=== PATIENT | female | born 1975 | race Caucasian/White ===

== ENCOUNTER 2016-09-18 16:04 | Outpatient (CLI) | payer BC | END 2016-09-18 16:05 | disposition home or self-care (01) | DX: M77.31 Calcaneal spur, right foot (principal) ==

== ENCOUNTER 2021-12-04 19:38 | Outpatient (CLI) | payer BC | END 2021-12-04 19:39 | disposition critical access hospital (66) | LOC: EMS 19:38 | DX: R07.89 Other chest pain (principal); R42 Dizziness and giddiness; R19.7 Diarrhea, unspecified | CPT/HCPCS: A0425; A0427 ==

== ENCOUNTER 2021-12-04 19:55 | Emergency (ER) | payer BC ==
--- NOTE | 2021-12-04 20:16 | ED Physician Documentation ---
PD HPI CHEST PAIN - Stated complaint Stated Complaint: CP - Chief complaint Chief Complaint: Cardiac - History obtained from History obtained from: Patient - Additional information Additional information: 46-year-old woman with no history of cardiac disease presents for the evaluation of chest pain. She woke this morning just feeling kind of crummy. She is had some loose stools. Then around midday developed mild mid back pain. Then this evening maybe 2 hours ago developed some diffuse chest pressure. This was after using a THC vape pen, that said uses that not infrequently and is not out of the ordinary. She does not use tobacco although did in her early 20s. Her father started having coronary disease in his early 50s. None of the pain is severe. She is not short of breath. Review of Systems Ten Systems: 10 systems reviewed and negative Constitutional: reports: Fatigue. denies: Fever, Chills Cardiac: reports: Chest pain / pressure. denies: Palpitations, Pedal edema, Calf pain Respiratory: denies: Dyspnea, Cough PD PAST MEDICAL HISTORY - Past Medical History Past Medical History: Yes GI: GERD Psych: Depression, Anxiety - Past Surgical History Past Surgical History: Yes General: Gastric surgery, Other Ortho: ACL reconstruction - Present Medications Home Medications: Ambulatory Orders Medication Instructions Recorded Confirmed Escitalopram [Lexapro] 10 mg PO DAILY 12/04/21 12/04/21 Meloxicam [Mobic] 7.5 mg PO DAILY 12/04/21 12/04/21 Omeprazole 40 mg PO DAILY 12/04/21 12/04/21 - Allergies Allergies/Adverse Reactions: Allergies Allergy/AdvReac Type Severity Reaction Status Date / Time No Known Drug Allergies Allergy Verified 12/04/21 20:00 - Social History Does the pt smoke?: No Smoking Status: Never smoker Does the pt drink ETOH?: Yes ETOH Use: Liquor Does the pt have substance abuse?: No - Immunizations Immunizations are current?: Yes PD ED PE NORMAL - Vitals Vital signs reviewed: Yes - General General: Alert and oriented X 3, No acute distress - HEENT HEENT: PERRL, EOMI - Neck Neck: Supple, no meningeal sign, No bony TTP - Cardiac Cardiac: RRR, No murmur - Respiratory Respiratory: No respiratory distress, Clear bilaterally - Abdomen Abdomen: Non tender - Back Back: No CVA TTP, No spinal TTP - Derm Derm: Normal color, Warm and dry - Extremities Extremities: No edema, No calf tenderness / cord - Neuro Neuro: Alert and oriented X 3, Normal speech Results - Vitals Vitals: Vital Signs - 24 hr 12/04/21 12/04/21 20:00 21:39 Temperature 36.3 C L 36.4 C L Heart Rate 80 79 Respiratory 16 16 Rate Blood Pressure 130/80 135/81 H O2 Saturation 99 99 Oxygen O2 Source Room air - EKG (time done) 2008 Rate: Rate (enter#) (65) Rhythm: NSR [place]: Normal Intervals: Normal VA QRS: Normal Ischemia: Normal ST segments - Labs Labs: Laboratory Tests 12/04/21 12/04/21 12/04/21 20:41 20:41 20:41 WBC 5.9 RBC 4.47 Hgb 13.0 Hct 39.4 MCV 88.1 MCH 29.1 MCHC 33.0 RDW 14.6 Plt Count 246 MPV 9.4 Neut # (Auto) 3.1 Lymph # (Auto) 2.0 Coal # (Auto) 0.5 Eos # (Auto) 0.2 Baso # (Auto) 0.0 Absolute Nucleated RBC 0.00 Nucleated RBC % 0.0 Sodium 138 Potassium 3.3 L Chloride 105 Carbon Dioxide 24 Anion Gap 9.0 BUN 15 Creatinine 0.7 Estimated GFR (MDRD) 90 Glucose 99 Calcium 8.7 Total Bilirubin 0.4 AST 21 ALT 22 Alkaline Phosphatase 57 Troponin I High Sens < 2.3 L Total Protein 6.8 Albumin 3.7 Globulin 3.1 Albumin/Globulin Ratio 1.2 Lipase 38 - Rads (name of study) 1v cxr Radiology: EMP read contemporaneously (NAD) PD MEDICAL DECISION MAKING - ED course ED course: HEART 2 Perc Neg Departure - Departure Disposition: 01 Home, Self Care Clinical Impression: Atypical chest pain Condition: Good Record reviewed to determine appropriate education?: Yes Instructions: ED Chest Pain Atypical Unkn Cause Comments: Call your doctor to arrange a follow-up appointment, make the next available a ppointment. In the interim, return anytime if worse or if new symptoms develop. Discharge Date/Time: 12/04/21 21:41
[2021-12-04 20:46] LABS: BASOPHILS % (AUTO) 0.7 %; EOSINOPHILS # (AUTO) 0.2 10^3/uL (0.0-0.7); EOSINOPHILS % (AUTO) 3.6 %; HCT - HEMATOCRIT 39.4 % (37.0-47.0); LYMPHOCYTES % (AUTO) 34.5 %; MEAN CORPUSCULAR HEMOGLOBIN 29.1 pg (27.0-31.0); MEAN CORPUSCULAR VOLUME 88.1 fL (81.0-99.0); MEAN PLATELET VOLUME 9.4 fL (7.9-10.8); MONOCYTES # (AUTO) 0.5 10^3/uL (0.0-1.0); MONOCYTES % (AUTO) 8.3 %; NEUTROPHILS # (AUTO) 3.1 10^3/uL (1.5-6.6); NEUTROPHILS % (AUTO) 52.7 %; PLT - PLATELET COUNT 246 10^3/uL (130-450); RED BLOOD COUNT 4.47 10^6/uL (4.20-5.40); RED CELL DISTRIBUTION WIDTH 14.6 % (12.0-15.0); WHITE BLOOD COUNT 5.9 x10^3/uL (4.8-10.8)
[2021-12-04 21:01] LABS: ALBUMIN 3.7 g/dL (3.2-5.5); ALBUMIN/GLOBULIN RATIO 1.2 (1.0-2.2); BILIRUBIN,TOTAL 0.4 mg/dL (0.2-1.0); CALCIUM 8.7 mg/dL (8.5-10.3); CREATININE 0.7 mg/dL (0.4-1.0); POTASSIUM 3.3 mmol/L (3.5-5.0); TOTAL PROTEIN 6.8 g/dL (6.7-8.2)
[2021-12-04 21:39] VITALS: BP 135/81
--- NOTE | 2021-12-04 22:00 | XRAY Report ---
PROCEDURE: Chest 1 View X-Ray INDICATIONS: Chest Pain TECHNIQUE: One view of the chest was acquired. COMPARISON: None FINDINGS: Surgical changes and devices: None. Lungs and pleura: No pleural effusions or pneumothorax. Lungs are clear. Mediastinum: Mediastinal contours appear normal. Heart size is normal. Bones and chest wall: No suspicious bony lesions. Overlying soft tissues appear unremarkable. IMPRESSION: No acute cardiopulmonary disease. Reviewed by: Danii Garrison MD on 12/04/2021 9:58 PM PDT Approved by: Danii Garrison MD on 12/04/2021 9:58 PM PDT Station ID: [id number]
== END 2021-12-04 21:41 | disposition home or self-care (01) ==
LOC: EDUNIT# → ED 19:55
DX: R07.89 Other chest pain (principal)
CPT/HCPCS: 36415; 80053; 83690; 84484; 85025; 93005; 99284

== ENCOUNTER 2022-10-06 21:04 | Outpatient (CLI) | payer BC | END 2022-10-06 23:59 | disposition EMS.NT | LOC: EMS 21:04 | DX: F10.129 Alcohol abuse with intoxication, unspecified (principal); R11.2 Nausea with vomiting, unspecified ==

== ENCOUNTER 2023-02-25 08:00 | Outpatient (CLI) | payer BC | END 2023-02-25 23:59 | disposition home or self-care (01) | LOC: LAB.S 08:00 | PROVIDERS: ATTEND Physician Assistant | DX: M70.21 Olecranon bursitis, right elbow (principal) | CPT/HCPCS: 87070; 87181; 87205 ==